=== PATIENT | male | born 1990 | race Hispanic/Latino ===

== ENCOUNTER 2018-08-28 10:55 | Inpatient (IN) | payer MEDICAID ==
--- NOTE | 2018-08-28 11:55 | ED PDOC ---
Arrival/HPI - General Chief Complaint: Dizziness/Lightheaded Time Seen by Provider: 08/28/18 11:44 Historian: Patient - History of Present Illness Narrative History of Present Illness (Text): 08/28/18 11:52 Patient is a 28 yo male states he "started dialysis last week" presents to the Emergency Department complaining of "not feeling well" including feeling short of breath, headaches, nauseous, and palpitations. He states he "missed my ride yesterday" and missed his dialysis yesterday. States his dialysis is typically on Monday, Monday, and Fridays. He also reports pain around right PICC line since yesterday. Denies fevers, denies pleuritic pain. Denies bleeding or pus or drainage. Patient states he does not know his past medical history. He states PICC line was placed last week. Time/Duration: Prior to Arrival Symptom Onset: Gradual Past Medical History - Cardiac Hx Cardiac Disorders: Yes Hx Hypertension: Yes - Pulmonary Hx Respiratory Disorders: No - Neurological Hx Neurological Disorder: No - HEENT Hx HEENT Disorder: No - Renal Hx Renal Disorder: Yes Type of Dialysis Access: right chest wall Date of Last Dialysis Treatment: 08/24/18 - Endocrine/Metabolic Hx Endocrine Disorders: No - Hematological/Oncological Hx Blood Disorders: No - Integumentary Hx Dermatological Disorder: No - Musculoskeletal/Rheumatological Hx Musculoskeletal Disorders: No - Gastrointestinal Hx Gastrointestinal Disorders: No - Genitourinary/Gynecological Hx Genitourinary Disorders: No - Psychiatric Hx Psychophysiologic Disorder: No Hx Substance Use: No - Surgical History Other/Comment: dialysis port insertion - Anesthesia Hx Anesthesia: Yes Family/Social History Family/Social History: Unknown Family HX Smoking Status: Never Smoked Hx Alcohol Use: No Hx Substance Use: No Allergies/Home Meds Allergies/Adverse Reactions: Allergies FISH Allergy (Verified 08/28/18 13:41) ANAPHYLAXIS Review of Systems - Review of Systems Constitutional: Fatigue. absent: Fevers Eyes: absent: Vision Changes ENT: absent: Hearing Changes Respiratory: SOB. absent: Cough, Wheezing Cardiovascular: Chest Pain, Palpitations, XIAO. absent: Edema Gastrointestinal: Nausea. absent: Abdominal Pain Genitourinary Male: absent: Dysuria Musculoskeletal: Back Pain. absent: Neck Pain Skin: absent: Rash Neurological: Headache, Dizziness. absent: Focal Weakness Endocrine: absent: Polyuria Hemo/Lymphatic: absent: Easy Bleeding Psychiatric: absent: Depression Physical Exam Vital Signs Reviewed: Yes Vital Signs Temp Pulse Resp BP Pulse Ox 08/28/18 10:56 98.2 F 94 H 17 134/76 97 Temperature: Afebrile Respiratory Rate: Tachypneic Appearance: Positive for: Ill-Appearing Mental Status: Positive for: Alert and Oriented X 3 - Systems Exam Head: Present: Atraumatic Extroacular Muscles: Present: EOMI Mouth: Present: Moist Mucous Membranes Pharnyx: No: ERYTHEMA Nose (Internal): Present: Normal Inspection, No Active Bleeding Neck: Present: Normal Range of Motion, JVD Respiratory/Chest: Present: Rales, Tachypneic, Other (PICC line in left anterior chest wall with no erythema or bleeding or pus) Cardiovascular: Present: Regular Rate and Rhythm, Murmurs Abdomen: No: Tenderness Rectal: No: Gross Blood Back: No: CVA Tenderness Lower Extremity: Present: Edema, Neurovascularly Intact Neurological: Present: Motor Func Grossly Intact, Normal Sensory Function. No: Memory Normal Skin: Present: Pale Psychiatric: Present: Alert. No: Normal Insight, Normal Concentration, Normal Affect, Suicidal Ideation, Homicidal Ideation Medical Decision Making ED Course and Treatment: 08/28/18 19:28 Patient arrives via ambulance. On exam, he is continually stating "I don't know" when asked what past medical history he has, states "I don't know" when asked where he is treated for his kidney disease or who his steam shovel operator is. He states he "missed his dialysis" and states last dialysis was four days ago. He reports "feeling sick" since yesterday. On exam, mild rales noted, but no respiratory distress noted with monitoring, serial exams. He complains of pain at PICC line site but on exam there is no bleeding or pus or cellulitis. With serial exams, patient at times will not answer questions, is intermittently sleeping but easily arousable with no respiratory distress noted. He does not answer when questioned about social history. BUN/ Cr elevated, although initial potassium in ED unremarkable and no arrhythmias noted on monitor. Patient with no prior labs currently available. He does not provide family contact information for me. CT head unremarkable. He is moving all extremities well. I consulted with oncall steam shovel operator regarding patient's renal failure and dialysis needs, although in ED at this time he is cv stable with no respiratory distress. Case reviewed with hospitalist, who accepts patients for serial exams, monitoring. 08/28/18 19:44 UTI noted patient initiated on antibiotics by admitting team. He is afebrile in ED with no abdominal pain, no vomiting. No tachycardia or hypotension. Patient has provided conflicting history to admitting team regarding his scheduled dialysis. - Lab Interpretations Interpretation: Abnormal lab values - RAD Interpretation Radiology Orders: 08/28/18 11:51 CHEST PORTABLE [RAD] Stat Chisel Mortiser Operator: Radiologist - EKG Interpretation EKG Interpretation (Text): 08/28/18 12:03 EKG at 11:56 normal sinus rhythm rate of 91, cannot rule out anterior infarct, age undetermined Interpreted by ED Physician: Yes Type: 12 lead EKG Disposition/Present on Arrival - Present on Arrival Any Indicators Present on Arrival: No History of DVT/PE: No History of Uncontrolled Diabetes: No Urinary Catheter: No History of Decub. Ulcer: No History Surgical Site Infection Following: None - Disposition Have Diagnosis and Disposition been Completed?: Yes Diagnosis: Renal failure, Dizziness, Dyspnea, UTI (urinary tract infection) Disposition: HOSPITALIZED Disposition Time: 14:00 Patient Plan: Admission, Telemetry Patient Problems: Current Active Problems Problem Status Onset Dizziness Acute Dyspnea Acute Renal failure Acute Condition: FAIR
[2018-08-28 12:19] LABS: BASO # 0.02 K/mm3 (0.0-2.0); BASO % 0.2 % (0.0-3.0); EOS # 0.4 (0.0-0.7); EOS % 4.6 % (1.5-5.0); GRAN # 5.58 (1.4-6.5); GRAN % 67.5 % (50.0-68.0); HEMOGLOBIN 8.7 g/dL (14.0-18.0); LYMPH # 1.8 (1.2-3.4); LYMPH % 21.5 % (22.0-35.0); MEAN CELL VOLUME 91.3 fl (80.0-105.0); MEAN CORPUSCULAR HEMOGLOBIN 30.2 pg (25.0-35.0); MEAN CORPUSCULAR HGB CONC 33.1 g/dl (31.0-37.0); MEAN PLATELET VOLUME 10.7 fl (7.0-11.0); MONO # 0.5 (0.1-0.6); MONO % 6.2 % (1.0-6.0); RBC 2.88 10^6/uL (3.5-6.1); RED CELL DISTRIBUTION WIDTH 12.8 % (11.5-14.5); WHITE BLOOD COUNT 8.3 10^3/ul (4.5-11.0)
[2018-08-28 12:29] LABS: INR 1.08; PARTIAL THROMBOPLASTIN TIME 30.4 Seconds (25.1-36.5); PROTHROMBIN TIME 12.4 SECONDS (9.4-12.5)
[2018-08-28 12:39] LABS: ALB/GLOB RATIO 1.2 (1.1-1.8); ALBUMIN 4.3 g/dL (3.0-4.8); ALT/SGPT 17 U/L (7-56); AST/SGOT 28 U/L (17-59); BLOOD UREA NITROGEN 69 mg/dL (7-21); CALCIUM 8.9 mg/dL (8.4-10.5); GFR NON-AFRICAN AMERICAN 6
[2018-08-28 12:42] LABS: B-TYPE NATRIURETIC PEPTIDE 762 pg/mL (0-450); TROPONIN I < 0.01 ng/mL
[2018-08-28 12:47] LABS: URINE BILIRUBIN NEGATIVE (NEGATIVE); URINE BLOOD MODERATE (NEGATIVE); URINE GLUCOSE (UA) NEGATIVE (NEGATIVE); URINE LEUKOCYTE ESTERASE TRACE Leu/uL (NEGATIVE); URINE PROTEIN >=300 mg/dL (<30 mg/dL); URINE UROBILINOGEN 0.2 E.U./dL (<1 E.U./dL)
[2018-08-28 13:03] LABS: URINE APPEARANCE CLEAR (CLEAR); URINE COLOR YELLOW (YELLOW)
[2018-08-28 13:07] LABS: URINE RBC 20 - 25 /hpf (0-2)
[2018-08-28 13:13] LABS: URINE BACTERIA MANY (NEG); URINE EPITHELIAL CELLS 0 - 2 /hpf (0-5)
[2018-08-28] MEDS: cefTRIAXone 1 gm 1 GM/100 ML BAG IVPB SCH (13:58)
[2018-08-28] MEDS: Pantoprazole 40 mg EC Tab PO SCH (13:59)
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
[2018-08-28 14:00] VITALS: BMI 45.7
--- NOTE | 2018-08-28 14:42 | CARD ---
APPROVED REPORT Date of service: 08/28/2018 EKG Measurement Heart [id number] <Conclusion> Normal sinus rhythm PRWP LVH NSSTW changes
[2018-08-28] MEDS ORDERED: Darbepoetin Alfa 60 mcg/ml Inj IV ONE (15:02)
[2018-08-28 15:10] LABS: BARBITURATES, UR NEGATIVE (NEGATIVE); BENZODIAZEPINES, UR NEGATIVE (NEGATIVE); OPIATES, UR NEGATIVE (NEGATIVE); PHENCYCLIDINE, UR POSITIVE (NEGATIVE)
--- NOTE | 2018-08-28 15:17 | CT ---
Date of service: 08/28/2018 PROCEDURE: CT HEAD WITHOUT CONTRAST. HISTORY: ?ams, fatigue, headache COMPARISON: None available. TECHNIQUE: Axial computed tomography images were obtained through the head/brain without intravenous contrast. Radiation dose: Total exam DLP = 829.23 mGy-cm. This CT exam was performed using one or more of the following dose reduction techniques: Automated exposure control, adjustment of the mA and/or kV according to patient size, and/or use of iterative reconstruction technique. FINDINGS: HEMORRHAGE: No intracranial hemorrhage. BRAIN: Normal valerio-white matter differentiation and density are appreciated throughout the cerebrum and cerebellum with the brainstem appearing unremarkable as well. There is no mass effect. There is no suspicious extra-axial fluid collection and the midline brain anatomy appears diffusely unremarkable. VENTRICLES: Unremarkable. No hydrocephalus. CALVARIUM: No destructive bony lesion or displaced fracture identified including through the skullbase. PARANASAL SINUSES: Unremarkable as visualized. No significant inflammatory changes. MASTOID AIR CELLS: Unremarkable as visualized. No inflammatory changes. OTHER FINDINGS: None. IMPRESSION: Unremarkable noncontrast head CT.
--- NOTE | 2018-08-28 15:38 | RAD ---
Date of service: 08/28/2018 HISTORY: Shortness of breath. COMPARISON: No prior. FINDINGS: LUNGS: No active pulmonary disease. PLEURA: No significant pleural effusion identified, no pneumothorax apparent. CARDIOVASCULAR: No atherosclerotic calcification present No radiographic findings to suggest acute or significant cardiovascular disease. Venous access catheter in satisfactory position. OSSEOUS STRUCTURES: No significant abnormalities. VISUALIZED UPPER ABDOMEN: Normal. OTHER FINDINGS: None. IMPRESSION: No active disease.
[2018-08-28 21:45] LABS: HEPATITIS B SURFACE AG Negative (NEGATIVE)
[2018-08-28 21:50] LABS: HEPATITIS B CORE AB NEGATIVE (NEGATIVE)
[2018-08-28] MEDS ORDERED: Influenza Vaccine 60 mcg/0.5 mL SYR (4YR UP) IM ONE (21:54)
[2018-08-28] MEDS ORDERED: Pneumococcal 23-Valent Vaccine IM ONE (21:54)
--- NOTE | 2018-08-28 22:50 | CON ---
DATE OF CONSULTATION: 08/28/2018 The patient admitted for Dr. Winters. REFERRING MD: Dr. Winters REASON FOR CONSULTATION: To provide dialysis services for a patient unknown to me, who presents to the emergency room after having missed yesterday's dialysis. HISTORY OF PRESENT ILLNESS: The patient is a 28-year-old white male with an apparent history of hypertension. History of chronic kidney disease culminating in end-stage renal disease. The patient dialyzes via a right-sided chest wall PermCath. The patient is somewhat confused, but it appears that he dialyzes in [place], [place]. 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 He missed yesterday's dialysis because he missed transportation. He comes in today to the emergency room somewhat confused. The patient is in need of dialysis. According to the patient, he takes no medications at home. The patient is a substance abuser. He smokes cigarettes. He lives with his grandmother. It is unclear whether the patient has a psychiatric history. The patient requires dialysis today. PAST MEDICAL HISTORY: Significant for that of chronic kidney disease culminating in end-stage renal disease, on chronic maintenance dialysis. Past history of hypertension. History of anemia secondary to chronic kidney disease. Likely history of secondary hyperparathyroidism, but these labs are pending. FAMILY HISTORY: Positive for hypertension and cancer. SOCIAL HISTORY: Positive history of cigarette use. No history of alcohol use. History of PCP abuse. The patient is unemployed. He lives with his grandmother. MEDICATIONS AT HOME: The patient states he takes no medications. MEDICATIONS IN HOSPITAL: Currently include that of subcu heparin, Protonix, Rocephin 1 g and Tylenol p.r.n. ALLERGIES: THE PATIENT STATES HE IS ALLERGIC TO FISH. REVIEW OF SYSTEMS: Severely limited. As best as I could tell, the patient's weight and appetite have been stable. He denies any hearing or visual problems. PULMONARY: No shortness of breath. No history of COPD, emphysema or asthma. CARDIAC: No history of coronary artery disease. GI: No complaints. No history of abdominal pain. No history of nausea, vomiting, diarrhea or constipation. : History of chronic kidney disease. The patient still makes urine. ENDOCRINE: No history of diabetes. Possible history of secondary hyperparathyroidism. MUSCULOSKELETAL: No complaints. NEURO: No history of CVA, TIA, seizures or syncope. HEME/ONC: History of anemia secondary to chronic kidney disease. Psychiatric history is unclear at present whether the patient has a psychiatric history. PHYSICAL EXAMINATION: The patient is currently seen in the emergency room, leaving for a head CT scan. He appears to be in no acute distress. VITAL SIGNS: Blood pressure 131/82, temperature is 98.2, pulse of 87 with a respiratory rate of 18. Pulse ox 98%. HEENT exam shows him to be normocephalic, atraumatic. Conjunctivae are pale. Sclerae are nonicteric. Pupils equal and reactive to light and accommodation. Extraocular muscles are intact. Posterior pharynx is normal. NECK: Supple. No neck vein distention. No thyromegaly. No lymphadenopathy. No bruits. CHEST: Clear to auscultation and percussion. No rales, rhonchi or wheezing. Positive right chest wall PermCath. Cardiovascular shows a regular rate and rhythm without audible murmurs, rubs or gallops. ABDOMEN: Soft. Bowel sounds normal. Moderate obesity. No masses. No rebound or guarding. BACK: No CVAT. No spinal tenderness. Extremities show no lower extremity cyanosis, clubbing or edema. Neuro shows him to be alert. Perhaps mild confusion, but we do not know the patient's baseline. He is oriented to person, place, but not time. No gross focal motor or sensory deficits noted. LABORATORY DATA AND IMAGING: Head CT scan is pending. Chest x-ray report is pending. Labs: CBC: White blood cell count 8.3, hemoglobin 8.7, platelet count 257,000. Coags are normal. Chemistries show normal electrolytes, potassium 4.4, BUN 69 with a creatinine of 10.3, calcium 8.9. Troponin less than 0.01. BNP 762. Albumin 4.3. Urinalysis shows 4+ protein, positive red blood cells, positive white blood cells, many bacteria. Toxicology Screen: Alcohol less than 10, acetaminophen less than 10, and salicylates less than 1. Microbiology, no cultures available for comment. ASSESSMENT: 1. End-stage renal disease, on chronic maintenance dialysis. According to the patient, he dialyzes in [place], [place]. We will attempt to find out his situation and who his cartoon designer is. The patient will receive a makeup of his dialysis today. We will give him a 2-1/2-hour treatment today and his usual 3-hour treatment tomorrow. 2. History of hypertension. Blood pressure appears to be controlled without blood pressure medication. 3. History of anemia, likely secondary to chronic kidney disease. The patient will receive Aranesp on dialysis and we will check his iron levels. 4. Possible secondary hyperparathyroidism. Need to check his phosphorus levels. 5. Perhaps altered mental status, perhaps this is his baseline level, unclear at this point in time. PLAN: 1. Discussed with hemodialysis nurse and ER staff. The patient will receive a 2-1/2-hour dialysis treatment today. Tomorrow the patient will receive his full 3-hour dialysis treatment. 2. Check phosphorus level. Continue renal diet and decide on binder therapy. 3. Aranesp and check iron levels on dialysis. 4. Social service evaluation to check into the patient's home situation, transportation to and from dialysis, and to help find out who his cartoon designer is in [place], [place]. Thank you for letting me partake and share in the care of your patient. Tom Alexander MD
[2018-08-29 07:03] LABS: BASO # 0.03 K/mm3 (0.0-2.0); BASO % 0.4 % (0.0-3.0); EOS # 0.4 (0.0-0.7); EOS % 4.9 % (1.5-5.0); GRAN # 4.73 (1.4-6.5); HEMOGLOBIN 8.9 g/dL (14.0-18.0); LYMPH # 1.7 (1.2-3.4); LYMPH % 22.1 % (22.0-35.0); MEAN CELL VOLUME 91.6 fl (80.0-105.0); MEAN CORPUSCULAR HEMOGLOBIN 29.9 pg (25.0-35.0); MEAN CORPUSCULAR HGB CONC 32.6 g/dl (31.0-37.0); MONO # 0.7 (0.1-0.6); MONO % 9.6 % (1.0-6.0); RBC 2.98 10^6/uL (3.5-6.1); RED CELL DISTRIBUTION WIDTH 12.9 % (11.5-14.5); WHITE BLOOD COUNT 7.5 10^3/ul (4.5-11.0)
[2018-08-29 07:29] LABS: ALB/GLOB RATIO 1.1 (1.1-1.8); ALBUMIN 4.2 g/dL (3.0-4.8)
[2018-08-29] MEDS: Pantoprazole 40 mg EC Tab PO SCH (12:28)
[2018-08-29] MEDS: cefTRIAXone 1 gm 1 GM/100 ML BAG IVPB SCH ×2 (12:29→13:07)
[2018-08-29 12:40] LABS: IRON 60 ug/dL (45-180)
[2018-08-29 12:49] LABS: % IRON SATURATION 23 % (20-55); TOTAL IRON BINDING CAPACITY 260 ug/dL (261-462)
--- NOTE | 2018-08-29 16:58 | CP.PCM.PN ---
<Humphrey Palumbo - Last Filed: 08/29/18 16:58> Subjective - Date & Time of Evaluation Date of Evaluation: 08/29/18 Time of Evaluation: 16:47 - Subjective Subjective: Pt seen and examined. Denies chest pain or SOB Objective - Vital Signs/Intake and Output Vital Signs (last 24 hours): Temp Pulse Resp BP Pulse Ox 97.9 F 101 H 19 130/80 96 08/29/18 06:00 08/29/18 10:00 08/29/18 06:00 08/29/18 06:00 08/29/18 06:00 Intake and Output: 08/29/18 08/29/18 06:59 18:59 Intake Total 240 Output Total 0 Balance 240 - Medications Medications: Current Medications Acetaminophen (Tylenol 325mg Tab) 325 mg PO Q4H PRN PRN Reason: Pain, moderate (4-7) Last Admin: 08/29/18 16:36 Dose: 325 mg Heparin Sodium (Porcine) (Heparin) 5,000 units SC Q8H [facility]; Protocol Last Admin: 08/29/18 13:07 Dose: 5,000 units Ceftriaxone Sodium (Rocephin 1 Gram Ivpb) 1 gm in 100 mls @ 100 mls/hr IVPB DAILY [facility]; Protocol Last Admin: 08/29/18 13:07 Dose: 100 mls/hr Pantoprazole Sodium (Protonix Ec Tab) 40 mg PO DAILY [facility] Last Admin: 08/29/18 12:28 Dose: Not Given - Labs Labs: 08/29/18 06:40 08/29/18 06:40 PT 12.4 SECONDS (9.4-12.5) 08/28/18 12:06 INR 1.08 08/28/18 12:06 APTT 30.4 Seconds (25.1-36.5) 08/28/18 12:06 - Head Exam Head Exam: ATRAUMATIC, NORMAL INSPECTION, NORMOCEPHALIC - Eye Exam Eye Exam: EOMI - ENT Exam ENT Exam: Mucous Membranes Moist - Respiratory Exam Respiratory Exam: Clear to Ausculation Bilateral, NORMAL BREATHING PATTERN. absent: Wheezes, Respiratory Distress - Cardiovascular Exam Cardiovascular Exam: RRR, +S1, +S2. absent: Diastolic murmur, Murmur - GI/Abdominal Exam GI & Abdominal Exam: Soft, Normal Bowel Sounds. absent: Tenderness - Extremities Exam Extremities Exam: Full ROM. absent: Calf Tenderness, Pedal Edema, Tenderness - Neurological Exam Neurological Exam: Alert, Awake, Oriented x3 - Psychiatric Exam Psychiatric exam: Normal Affect, Normal Mood - Skin Skin Exam: Dry, Normal Color, Warm Assessment and Plan - Assessment and Plan (Free Text) Assessment: 28 yr old male recently started on dialysis with acute renal failure; missed dialysis yesterday Plan: Renal Failure - will obtain consent from patient and attempt to obtain records/history from outside facility/family - Renal Diet - Phos 8.1 - Cr 8.7, BUN 50 - pt received dialysis today - nephrology consulted, recs appreciated Symptomatic UTI - tylenol for pain control - continue Rocephin 1g daily Substance abuse/AMS - patient admits to PCP use yesterday - Urine tox POSITIVE for PCP - ETOH: negative - will monitor for withdrawal symptoms - Head CT unremarkable Anemia - Hgb 8.9 - pt given darbepoetin yesterday HTN - takes no medications at home - currently asymptomatic - will continue to monitor Ppx - Heparin SC 5000 u Q8H - Protonix 40 mg daily Pt seen, examined, assessment and plan discussed with Dr Vianey Palumbo PGY1 <Reji Winters - Last Filed: 08/30/18 07:35> Objective - Vital Signs/Intake and Output Vital Signs (last 24 hours): Temp Pulse Resp BP Pulse Ox 98.6 F 83 20 133/88 97 08/29/18 17:42 08/30/18 06:00 08/29/18 17:42 08/29/18 17:42 08/29/18 17:42 - Medications Medications: Current Medications Acetaminophen (Tylenol 325mg Tab) 325 mg PO Q4H PRN PRN Reason: Pain, moderate (4-7) Last Admin: 08/29/18 16:36 Dose: 325 mg Heparin Sodium (Porcine) (Heparin) 5,000 units SC Q8H [facility]; Protocol Last Admin: 08/30/18 05:54 Dose: Not Given Ceftriaxone Sodium (Rocephin 1 Gram Ivpb) 1 gm in 100 mls @ 100 mls/hr IVPB DAILY [facility]; Protocol Last Admin: 08/29/18 13:07 Dose: 100 mls/hr Pantoprazole Sodium (Protonix Ec Tab) 40 mg PO DAILY [facility] Last Admin: 08/29/18 12:28 Dose: Not Given - Labs Labs: 08/30/18 06:20 08/30/18 06:20 PT 12.4 SECONDS (9.4-12.5) 08/28/18 12:06 INR 1.08 08/28/18 12:06 APTT 30.4 Seconds (25.1-36.5) 08/28/18 12:06 Attending/Attestation - Attestation I have personally seen and examined this patient.: Yes I have fully participated in the care of the patient.: Yes I have reviewed all pertinent clinical information, including history, physical exam and plan: Yes Notes (Text): 08/29/18 28 year old male with pat medical history of hypertension and ESRD recently started on dialysis as per patient who presented with complaint of generalized weakness after missing his last dialysis session. CT head was negative for acute findings. Nephrology evaluation was appreciated and dialysis was resumed. Utox was postive for PCP; patient was counselled on risks of continued crenshaw bstance abuse. Anemia is likely secondary to anemia of chronic renal disease. Iron studies reviewed. Will continue to monitor closely. Continue with antibiotics for UTI. Will follow up with social service agency director and PT recommendations for d/c planning. Reji Winters MD Hospitalist.
[2018-08-29] MEDS ORDERED: DiphenhydrAMINE 50 mg/ml Inj IVP ONE (22:00)
[2018-08-30 07:14] LABS: ALB/GLOB RATIO 1.1 (1.1-1.8); ALBUMIN 4.2 g/dL (3.0-4.8); CALCIUM 8.9 mg/dL (8.4-10.5)
[2018-08-30 07:18] LABS: BASO # 0.05 K/mm3 (0.0-2.0); BASO % 0.5 % (0.0-3.0); EOS # 0.4 (0.0-0.7); GRAN # 5.45 (1.4-6.5); GRAN % 57.7 % (50.0-68.0); HEMOGLOBIN 9.4 g/dL (14.0-18.0); LYMPH # 2.6 (1.2-3.4); LYMPH % 27.8 % (22.0-35.0); MEAN CELL VOLUME 91.5 fl (80.0-105.0); MEAN CORPUSCULAR HEMOGLOBIN 29.7 pg (25.0-35.0); MEAN CORPUSCULAR HGB CONC 32.5 g/dl (31.0-37.0); MEAN PLATELET VOLUME 11.2 fl (7.0-11.0); RBC 3.16 10^6/uL (3.5-6.1); WHITE BLOOD COUNT 9.5 10^3/ul (4.5-11.0)
[2018-08-30] MEDS: Pantoprazole 40 mg EC Tab PO SCH (09:47)
[2018-08-30] MEDS: cefTRIAXone 1 gm 1 GM/100 ML BAG IVPB SCH (09:47)
[2018-08-30 10:25] VITALS: BP 151/100; PULSE 87; RESP 18; TEMP 98.1; O2SAT 96
--- NOTE | 2018-08-30 14:34 | CP.PCM.DIS ---
<Humphrey Palumbo - Last Filed: 08/30/18 14:54> Provider - Provider Date of Admission: 08/28/18 13:17 Attending physician: Reji Winters MD Primary care physician: NO PRIMARY CARE PROVIDER Time Spent in preparation of Discharge (in minutes): 45 Diagnosis - Discharge Diagnosis (1) Renal failure Status: Acute Priority: High (2) UTI (urinary tract infection) Status: Acute Priority: High (3) Dizziness Status: Acute Priority: High (4) Dyspnea Status: Acute Priority: High Hospital Course - Lab Results Lab Results: Micro Results 08/28/18 12:00 Blood Blood Culture - Preliminary NO GROWTH AFTER 48 HOURS 08/28/18 11:30 Blood Blood Culture - Preliminary NO GROWTH AFTER 48 HOURS 08/28/18 13:00 Urine Urine Culture - Final No Growth (<1,000 CFU/ML) Most Recent Lab Values WBC 9.5 10^3/ul (4.5-11.0) D 08/30/18 06:20 RBC 3.16 10^6/uL (3.5-6.1) L 08/30/18 06:20 Hgb 9.4 g/dL (14.0-18.0) L 08/30/18 06:20 Hct 28.9 % (42.0-52.0) L 08/30/18 06:20 MCV 91.5 fl (80.0-105.0) 08/30/18 06:20 MCH 29.7 pg (25.0-35.0) 08/30/18 06:20 MCHC 32.5 g/dl (31.0-37.0) 08/30/18 06:20 RDW 13.0 % (11.5-14.5) 08/30/18 06:20 Plt Count 297 10^3/uL (120.0-450.0) 08/30/18 06:20 MPV 11.2 fl (7.0-11.0) H 08/30/18 06:20 Gran % 57.7 % (50.0-68.0) 08/30/18 06:20 Lymph % (Auto) 27.8 % (22.0-35.0) 08/30/18 06:20 [place] % (Auto) 10.0 % (1.0-6.0) H 08/30/18 06:20 Eos % (Auto) 4.0 % (1.5-5.0) 08/30/18 06:20 Baso % (Auto) 0.5 % (0.0-3.0) 08/30/18 06:20 Gran # 5.45 (1.4-6.5) 08/30/18 06:20 Lymph # (Auto) 2.6 (1.2-3.4) 08/30/18 06:20 [place] # (Auto) 1.0 (0.1-0.6) H 08/30/18 06:20 Eos # (Auto) 0.4 (0.0-0.7) 08/30/18 06:20 Baso # (Auto) 0.05 K/mm3 (0.0-2.0) 08/30/18 06:20 PT 12.4 SECONDS (9.4-12.5) 08/28/18 12:06 INR 1.08 08/28/18 12:06 APTT 30.4 Seconds (25.1-36.5) 08/28/18 12:06 Sodium 140 mmol/L (132-148) 08/30/18 06:20 Potassium 4.1 mmol/L (3.6-5.0) 08/30/18 06:20 Chloride 99 mmol/L (98-107) 08/30/18 06:20 Carbon Dioxide 28 mmol/L (21-33) 08/30/18 06:20 Anion Gap 18 (10-20) 08/30/18 06:20 BUN 39 mg/dL (7-21) H 08/30/18 06:20 Creatinine 7.2 mg/dl (0.8-1.5) H 08/30/18 06:20 Est GFR ( Amer) 11 08/30/18 06:20 Est GFR (Non-Af Amer) 9 08/30/18 06:20 POC Glucose (mg/dL) 86 mg/dL (65-110) 08/28/18 12:21 Random Glucose 95 mg/dL (70-110) 08/30/18 06:20 Calcium 8.9 mg/dL (8.4-10.5) 08/30/18 06:20 Phosphorus 7.0 mg/dL (2.5-4.5) H 08/30/18 06:20 Magnesium 2.0 mg/dL (1.7-2.2) 08/30/18 06:20 Iron 60 ug/dL (45-180) 08/29/18 07:00 TIBC 260 ug/dL (261-462) L 08/29/18 07:00 % Saturation 23 % (20-55) 08/29/18 07:00 Ferritin 104.0 ng/mL 08/29/18 07:00 Total Bilirubin 0.3 mg/dL (0.2-1.3) 08/30/18 06:20 AST 22 U/L (17-59) 08/30/18 06:20 ALT 15 U/L (7-56) 08/30/18 06:20 Alkaline Phosphatase 89 U/L (38-126) 08/30/18 06:20 Lactate Dehydrogenase 590 U/L (333-699) 08/28/18 12:06 Total Creatine Kinase 165 U/L (35-230) 08/28/18 12:06 Troponin I < 0.01 ng/mL 08/28/18 12:06 NT-Pro-B Natriuret Pep 762 pg/mL (0-450) H 08/28/18 12:06 Total Protein 8.0 g/dL (5.8-8.3) 08/30/18 06:20 Albumin 4.2 g/dL (3.0-4.8) 08/30/18 06:20 Globulin 3.8 gm/dL 08/30/18 06:20 Albumin/Globulin Ratio 1.1 (1.1-1.8) 08/30/18 06:20 Urine Color Yellow (YELLOW) 08/28/18 12:40 Urine Appearance Clear (CLEAR) 08/28/18 12:40 Urine pH 7.0 (4.7-8.0) 08/28/18 12:40 Ur Specific [place] 1.015 (1.005-1.035) 08/28/18 12:40 Urine Protein >=300 mg/dL (<30 mg/dL) H 08/28/18 12:40 Urine Glucose (UA) Negative mg/dL (NEGATIVE) 08/28/18 12:40 Urine Ketones Negative mg/dL (NEGATIVE) 08/28/18 12:40 Urine Blood Moderate (NEGATIVE) H 08/28/18 12:40 Urine Nitrate Negative (NEGATIVE) 08/28/18 12:40 Urine Bilirubin Negative (NEGATIVE) 08/28/18 12:40 Urine Urobilinogen 0.2 E.U./dL (<1 E.U./dL) 08/28/18 12:40 Ur Leukocyte Esterase Trace Tyson/uL (NEGATIVE) H 08/28/18 12:40 Urine RBC 20 - 25 /hpf (0-2) 08/28/18 12:40 Urine WBC 5 - 10 /hpf (0-6) 08/28/18 12:40 Ur Epithelial Cells 0 - 2 /hpf (0-5) 08/28/18 12:40 Urine Bacteria Many (NEG) 08/28/18 12:40 Salicylates < 1 mg/dL (2.0-20.0) L 08/28/18 12:06 Urine Opiates Screen Negative (NEGATIVE) 08/28/18 14:30 Urine Methadone Screen Negative (NEGATIVE) 08/28/18 14:30 Acetaminophen < 10.0 ug/ml (10.0-20.0) L 08/28/18 13:40 Ur Barbiturates Screen Negative (NEGATIVE) 08/28/18 14:30 Ur Phencyclidine Scrn Positive (NEGATIVE) H 08/28/18 14:30 Ur Amphetamines Screen Negative (NEGATIVE) 08/28/18 14:30 U Benzodiazepines Scrn Negative (NEGATIVE) 08/28/18 14:30 U Oth Cocaine Metabols Negative (NEGATIVE) 08/28/18 14:30 U Cannabinoids Screen Negative (NEGATIVE) 08/28/18 14:30 Alcohol, Quantitative < 10 mg/dL (0-10) 08/28/18 13:45 Hep Bs Antigen Negative (NEGATIVE) 08/28/18 11:00 Hep Bs Antibody Positive (NEGATIVE) 08/28/18 14:30 Hep B Core IgM Ab Negative (NEGATIVE) 08/28/18 11:00 Blood Type O NEGATIVE 08/28/18 10:00 Blood Type Confirm O NEGATIVE 08/28/18 14:30 Antibody Screen Negative 08/28/18 10:00 BBK History Checked No verified bt 08/28/18 10:00 - Hospital Course Hospital Course: 28 yo male with a PMH of HTN not currently on any medications presents the ED because he missed his dialysis and states "I need help". He is complaining of generalized pain. Pt is a very poor historian. Per patient he went to [facility] two weeks ago because he had generalized body aches and pains. He sta yed at [facility] for one week and they told him he needed to start dialysis because he had acute renal failure. He states he doesn't know why he needs dialysis and cannot describe any of this other medical conditions. He states he is supposed to get dialysis MWF, his last dialysis was last week though pt changed the story multiple times so it is unclear. He was unable to get to his dialysis appointment yesterday because he "missed his taxi and did not have money for another one". Prior to [facility] his last doctors visit was over a year ago when [place] was [place] [facility]. He has not seen a doctor since his release. Pt is a 28 yo male with PMH of HTN, substance abuse, and ESRD recently started on dialysis but missed his last dialysis appointment. His creatinine upon admission was 10.3, Hbg was 8.7. Pt also complaining of dysuria and urinary frequency. Pt was admitted and had two rounds of dialysis over three days. Urine cultures were negative for growth of bacteria, however pt was still symptomatic and was treated with Rocephin. Nephrology was consulted for management of his end stage renal disease, dialysis, and anemia. He received one dose of Aranesp. Pt is currently hemodynamically stable, his creatinine is 7.2. Pt is amenable to discharge at this time. He was advised to stop using drugs and counciled on dangers if he continues to use. Pt is stable for discharge to home as per Dr. Winters. Pt will need to continue going to dialysis 3x per week at [facility] in [place]. Pt was seeing Dr. Leila Medina, a Cash Teller at [facility]. Pt sent home with a prescription for Keflex 250mg q24 for the next 3 days, verified with pharmacy and renally dosed. - Date & Time of H&P Date of H&P: 08/30/18 Time of H&P: 14:34 Discharge Exam - Head Exam Head Exam: ATRAUMATIC, NORMAL INSPECTION, NORMOCEPHALIC - Eye Exam Eye Exam: EOMI - ENT Exam ENT Exam: Mucous Membranes Moist - Respiratory Exam Respiratory Exam: NORMAL BREATHING PATTERN. absent: Accessory Muscle Use, Wheezes, Respiratory Distress, Stridor - Cardiovascular Exam Cardiovascular Exam: RRR, +S1, +S2. absent: Diastolic murmur, Systolic Murmur - GI/Abdominal Exam GI & Abdominal Exam: Normal Bowel Sounds, Unremarkable. absent: Rigid - Extremities Exam Extremities exam: full ROM - Neurological Exam Neurological exam: Alert, Oriented x3 - Psychiatric Exam Psychiatric exam: Normal Affect, Normal Mood - Skin Skin Exam: Dry, Normal Color, Warm Discharge Plan - Discharge Medications Prescriptions: Cephalexin [Keflex] 250 mg PO DAILY #3 capsule - Follow Up Plan Condition: FAIR Disposition: HOME/ ROUTINE Instructions: Kidney Failure (DC), Urinary Tract Infection in Women (DC), Urinary Tract Infection in Men (DC), Renal Failure Diet (DC), Dysuria (GEN) Additional Instructions: YOUR DIALYSIS IS TOMORROW 08/31/18 AT 1 PM. [facility] [address] [place] [address] 1. please follow up with your primary care physician within 1 week 2. please take your antibiotics as directed 3. if your symptoms return or worsen, please go to the nearest emergency depart ment. Referrals: PCP,SUJATHA [Primary Care Provider] - Tom Alexander MD [Staff Provider] - <Reji Winters - Last Filed: 08/30/18 15:47> Provider - Provider Date of Admission: 08/28/18 13:17 Attending physician: Reji Winters MD Primary care physician: SUJATHA PRIMARY CARE PROVIDER Hospital Course - Lab Results Lab Results: Micro Results 08/28/18 12:00 Blood Blood Culture - Preliminary NO GROWTH AFTER 48 HOURS 08/28/18 11:30 Blood Blood Culture - Preliminary NO GROWTH AFTER 48 HOURS 08/28/18 13:00 Urine Urine Culture - Final No Growth (<1,000 CFU/ML) Most Recent Lab Values WBC 9.5 10^3/ul (4.5-11.0) D 08/30/18 06:20 RBC 3.16 10^6/uL (3.5-6.1) L 08/30/18 06:20 Hgb 9.4 g/dL (14.0-18.0) L 08/30/18 06:20 Hct 28.9 % (42.0-52.0) L 08/30/18 06:20 MCV 91.5 fl (80.0-105.0) 08/30/18 06:20 MCH 29.7 pg (25.0-35.0) 08/30/18 06:20 MCHC 32.5 g/dl (31.0-37.0) 08/30/18 06:20 RDW 13.0 % (11.5-14.5) 08/30/18 06:20 Plt Count 297 10^3/uL (120.0-450.0) 08/30/18 06:20 MPV 11.2 fl (7.0-11.0) H 08/30/18 06:20 Gran % 57.7 % (50.0-68.0) 08/30/18 06:20 Lymph % (Auto) 27.8 % (22.0-35.0) 08/30/18 06:20 [place] % (Auto) 10.0 % (1.0-6.0) H 08/30/18 06:20 Eos % (Auto) 4.0 % (1.5-5.0) 08/30/18 06:20 Baso % (Auto) 0.5 % (0.0-3.0) 08/30/18 06:20 Gran # 5.45 (1.4-6.5) 08/30/18 06:20 Lymph # (Auto) 2.6 (1.2-3.4) 08/30/18 06:20 [place] # (Auto) 1.0 (0.1-0.6) H 08/30/18 06:20 Eos # (Auto) 0.4 (0.0-0.7) 08/30/18 06:20 Baso # (Auto) 0.05 K/mm3 (0.0-2.0) 08/30/18 06:20 PT 12.4 SECONDS (9.4-12.5) 08/28/18 12:06 INR 1.08 08/28/18 12:06 APTT 30.4 Seconds (25.1-36.5) 08/28/18 12:06 Sodium 140 mmol/L (132-148) 08/30/18 06:20 Potassium 4.1 mmol/L (3.6-5.0) 08/30/18 06:20 Chloride 99 mmol/L (98-107) 08/30/18 06:20 Carbon Dioxide 28 mmol/L (21-33) 08/30/18 06:20 Anion Gap 18 (10-20) 08/30/18 06:20 BUN 39 mg/dL (7-21) H 08/30/18 06:20 Creatinine 7.2 mg/dl (0.8-1.5) H 08/30/18 06:20 Est GFR ( Amer) 11 08/30/18 06:20 Est GFR (Non-Af Amer) 9 08/30/18 06:20 POC Glucose (mg/dL) 86 mg/dL (65-110) 08/28/18 12:21 Random Glucose 95 mg/dL (70-110) 08/30/18 06:20 Calcium 8.9 mg/dL (8.4-10.5) 08/30/18 06:20 Phosphorus 7.0 mg/dL (2.5-4.5) H 08/30/18 06:20 Magnesium 2.0 mg/dL (1.7-2.2) 08/30/18 06:20 Iron 60 ug/dL (45-180) 08/29/18 07:00 TIBC 260 ug/dL (261-462) L 08/29/18 07:00 % Saturation 23 % (20-55) 08/29/18 07:00 Ferritin 104.0 ng/mL 08/29/18 07:00 Total Bilirubin 0.3 mg/dL (0.2-1.3) 08/30/18 06:20 AST 22 U/L (17-59) 08/30/18 06:20 ALT 15 U/L (7-56) 08/30/18 06:20 Alkaline Phosphatase 89 U/L (38-126) 08/30/18 06:20 Lactate Dehydrogenase 590 U/L (333-699) 08/28/18 12:06 Total Creatine Kinase 165 U/L (35-230) 08/28/18 12:06 Troponin I < 0.01 ng/mL 08/28/18 12:06 NT-Pro-B Natriuret Pep 762 pg/mL (0-450) H 08/28/18 12:06 Total Protein 8.0 g/dL (5.8-8.3) 08/30/18 06:20 Albumin 4.2 g/dL (3.0-4.8) 08/30/18 06:20 Globulin 3.8 gm/dL 08/30/18 06:20 Albumin/Globulin Ratio 1.1 (1.1-1.8) 08/30/18 06:20 Urine Color Yellow (YELLOW) 08/28/18 12:40 Urine Appearance Clear (CLEAR) 08/28/18 12:40 Urine pH 7.0 (4.7-8.0) 08/28/18 12:40 Ur Specific [place] 1.015 (1.005-1.035) 08/28/18 12:40 Urine Protein >=300 mg/dL (<30 mg/dL) H 08/28/18 12:40 Urine Glucose (UA) Negative mg/dL (NEGATIVE) 08/28/18 12:40 Urine Ketones Negative mg/dL (NEGATIVE) 08/28/18 12:40 Urine Blood Moderate (NEGATIVE) H 08/28/18 12:40 Urine Nitrate Negative (NEGATIVE) 08/28/18 12:40 Urine Bilirubin Negative (NEGATIVE) 08/28/18 12:40 Urine Urobilinogen 0.2 E.U./dL (<1 E.U./dL) 08/28/18 12:40 Ur Leukocyte Esterase Trace Tyson/uL (NEGATIVE) H 08/28/18 12:40 Urine RBC 20 - 25 /hpf (0-2) 08/28/18 12:40 Urine WBC 5 - 10 /hpf (0-6) 08/28/18 12:40 Ur Epithelial Cells 0 - 2 /hpf (0-5) 08/28/18 12:40 Urine Bacteria Many (NEG) 08/28/18 12:40 Salicylates < 1 mg/dL (2.0-20.0) L 08/28/18 12:06 Urine Opiates Screen Negative (NEGATIVE) 08/28/18 14:30 Urine Methadone Screen Negative (NEGATIVE) 08/28/18 14:30 Acetaminophen < 10.0 ug/ml (10.0-20.0) L 08/28/18 13:40 Ur Barbiturates Screen Negative (NEGATIVE) 08/28/18 14:30 Ur Phencyclidine Scrn Positive (NEGATIVE) H 08/28/18 14:30 Ur Amphetamines Screen Negative (NEGATIVE) 08/28/18 14:30 U Benzodiazepines Scrn Negative (NEGATIVE) 08/28/18 14:30 U Oth Cocaine Metabols Negative (NEGATIVE) 08/28/18 14:30 U Cannabinoids Screen Negative (NEGATIVE) 08/28/18 14:30 Alcohol, Quantitative < 10 mg/dL (0-10) 08/28/18 13:45 Hep Bs Antigen Negative (NEGATIVE) 08/28/18 11:00 Hep Bs Antibody Positive (NEGATIVE) 08/28/18 14:30 Hep B Core IgM Ab Negative (NEGATIVE) 08/28/18 11:00 Blood Type O NEGATIVE 08/28/18 10:00 Blood Type Confirm O NEGATIVE 08/28/18 14:30 Antibody Screen Negative 08/28/18 10:00 BBK History Checked No verified bt 08/28/18 10:00 Attending/Attestation - Attestation I have personally seen and examined this patient.: Yes I have fully participated in the care of the patient.: Yes I have reviewed all pertinent clinical information, including history, physical exam and plan: Yes Notes (Text): 08/30/18 15:45 28 year old male with past medical history of hypertension and ESRD recently started on dialysis as per patient who presented with complaint of generalized weakness after missing his last dialysis session. CT head was negative for acute findings. Nephrology evaluation was appreciated and dialysis was resumed. Utox was positive for PCP and patient was counselled on risks of continued substance abuse. Anemia is likely secondary to anemia of chronic renal disease. Patient is on antibiotics for UTI. Overall his symptoms improved. Patient is discharged home to follow up with pmd. Continue with hemodialysis as per schedule. Counselled on risks of continued substance abuse. Reji Winters MD Hospitalist.
== END 2018-08-30 14:03 | disposition home or self-care (01) | DRG 316 ==
LOC: ED 10:55 → ERH 13:17 → 3RSO 15:03
PROVIDERS: ADMIT Internal Medicine; ATTEND Internal Medicine
PROC: 5A1D70Z Performance of Urinary Filtration, Intermittent, Less than 6 Hours Per Day (ICD-10-PCS; principal; 2018-08-28)
PROC: 5A1D70Z Performance of Urinary Filtration, Intermittent, Less than 6 Hours Per Day (ICD-10-PCS; 2018-08-29)
DX: N17.9 Acute kidney failure, unspecified (principal); I12.0 Hypertensive chronic kidney disease with stage 5 chronic kidney disease or end stage renal disease; N39.0 Urinary tract infection, site not specified; F16.10 Hallucinogen abuse, uncomplicated; N18.6 End stage renal disease; D63.1 Anemia in chronic kidney disease; F17.210 Nicotine dependence, cigarettes, uncomplicated; R41.82 Altered mental status, unspecified; Z99.2 Dependence on renal dialysis; Z82.49 Family history of ischemic heart disease and other diseases of the circulatory system; Z80.9 Family history of malignant neoplasm, unspecified; Z91.013 Allergy to seafood; Z87.892 Personal history of anaphylaxis